=== PATIENT | male | born 1945 | race Caucasian/White ===

== ENCOUNTER 2019-05-01 10:31 | Emergency (ER) | payer OTHER ==
[2019-05-01 11:25] LABS: Protime INR 1.04
--- NOTE | 2019-05-01 11:31 | RAD REPORT ---
EXAM DESCRIPTION: RAD - Chest Single View - 05/01/2019 11:22 am CLINICAL HISTORY: CHEST PAIN Chest pain. COMPARISON: No comparisons FINDINGS: Portable technique limits examination quality. Mild COPD. No focal infiltrate. The heart is normal in size. No displaced fractures. IMPRESSION: Mild COPD.
[2019-05-01 11:33] LABS: ALT/SGPT 29 U/L (12-78); AST/SGOT 25 U/L (15-37); Albumin 3.6 g/dL (3.4-5.0); Alkaline Phosphatase 67 U/L (45-117); BUN Blood Urea Nitrogen 21 mg/dL (7-18); Bicarbonate 25 mmol/L (21-32); Bilirubin Direct 0.3 mg/dL (0-0.2); Bilirubin Total 1.6 mg/dL (0.2-1.0); Glucose Level 104 mg/dL (74-106); Magnesium 2.2 mg/dL (1.8-2.4); NT PRO-BNP 63 pg/mL (<450); Protein, Total 7.5 g/dL (6.4-8.2); Sodium Level 139 mmol/L (136-145); Troponin (Emerg Dept Use Only) < 0.02 ng/mL (0.0-0.045)
--- NOTE | 2019-05-01 11:41 | ER ---
Nurse's Notes [facility] Name: Luis Miguel Luke Age: 73 yrs Sex: Male : 1945 Arrival Date: 05/01/2019 Time: 10:34 Bed 8 Private MD: Diagnosis: Hypotension;Bradycardia, unspecified;Other chest pain Presentation: 05/01 10:49 Presenting complaint: Patient states: has had intermittent midsternal chest pain all iw week, this morning woke up and had a low BP reading of 98/60 and was dizzy, [facility], pt has hx of hiatal hernia that gives him pain from time to time, pt denies pain at this time, c/o mild dizziness. Transition of care: patient was not received from another setting of care. Onset of symptoms was May 01, 2019. Risk Assessment: Do you want to hurt yourself or someone else? Patient reports no desire to harm self or others. Initial Sepsis Screen: Does the patient meet any 2 criteria? No. Patient's initial sepsis screen is negative. Does the patient have a suspected source of infection? No. Patient's initial sepsis screen is negative. Care prior to arrival: None. 10:49 Method Of Arrival: Wheelchair iw 10:49 Acuity: ISAAC 3 iw Historical: - Allergies: 10:55 Aspirin; iw - Home Meds: 10:55 None [Active]; iw - PMHx: 10:55 prostate cancer; iw - PSHx: 10:55 prostatectomy; back; Hernia repair; ear surgery; iw - Immunization history:: Adult Immunizations up to date. - Social history:: Smoking status: Patient/guardian denies using tobacco. - Ebola Screening: : Patient negative for fever greater than or equal to 101.5 degrees Fahrenheit, and additional compatible Ebola Virus Disease symptoms Patient denies exposure to infectious person Patient denies travel to an Ebola-affected area in the 21 days before illness onset No symptoms or risks identified at this time. - Family history:: not pertinent. Screenin:00 Abuse screen: Denies threats or abuse. Denies injuries from another. Nutritional sg screening: No deficits noted. Tuberculosis screening: No symptoms or risk factors identified. Never had TB. Fall Risk None identified. Assessment: 11:00 General: Appears in no apparent distress. well groomed, well developed, well nourished, sg Behavior is calm, cooperative, appropriate for age. Pain: Complains of pain in chest Quality of pain is described as aching, intermittent. Neuro: Level of Consciousness is awake, alert, obeys commands, Oriented to person, place, time, Speech is normal, Facial symmetry appears normal. Cardiovascular: Capillary refill is brisk in bilateral fingers Patient's skin is warm and dry. Chest pain is denied. Respiratory: Airway is patent Respiratory effort is even, unlabored, Respiratory pattern is regular, symmetrical. GI: Abdomen is round non-distended. : No signs and/or symptoms were reported regarding the genitourinary system. EENT: No signs and/or symptoms were reported regarding the EENT system. Derm: Skin is pink, warm \T\ dry. Musculoskeletal: No signs and/or symptoms reported regarding the musculoskeletal system. Vital Signs: 10:55 BP 153 / 81; Pulse 64; Resp 16; Temp 97.5; Pulse Ox 100% on R/A; Weight 84.37 kg; iw Height 5 ft. 11 in. (180.34 cm); Pain 0/10; 12:55 BP 160 / 87; Pulse 57 MON; Resp 17; Pulse Ox 99% on R/A; Pain 0/10; sg 14:11 BP 160 / 83; Pulse 49; Resp 16; Pulse Ox 100% on R/A; Pain 0/10; hb 14:45 BP 157 / 73; Pulse 58; Resp 13; Pulse Ox 98% on R/A; sg 16:00 BP 166 / 70; Pulse 55; Resp 18 S; Temp 97.6; Pulse Ox 100% on R/A; Pain 0/10; sg 10:55 Body Mass Index 25.94 (84.37 kg, 180.34 cm) iw ED Course: 10:34 Patient arrived in ED. rg4 10:37 Jordon Funes MD is Attending Physician. zackery 10:53 Triage completed. iw 10:55 Arm band placed on. iw 10:57 Samuel Mcgowan, YOGI is Primary Nurse. sg 11:00 Patient has correct armband on for positive identification. Placed in gown. Bed in low sg position. Side rails up X2. 11:00 Inserted saline lock: 20 gauge in right forearm, using aseptic technique. Blood sg collected. Patient maintains SpO2 saturation greater than 95% on room air. 11:21 X-ray completed. Portable x-ray completed in exam room. Patient tolerated procedure mh1 well. 11:25 patient monitor on. Pulse ox on. NIBP on. jp3 13:01 Warm blanket given. jp3 14:17 No provider procedures requiring assistance completed. Patient transferred, IV remains sg in place. intact, No redness/swelling at site. Administered Medications: 12:00 Drug: NS 0.9% 1000 ml Route: IV; Rate: 125 ml/hr; Site: right forearm; sg 12:00 Drug: Pepcid 20 mg Route: IVP; Site: right forearm; sg 12:40 Follow up: Response: No adverse reaction sg 12:06 Drug: Thiamine 100 mg Route: IV; Rate: bolus; Site: right forearm; sg 12:30 Follow up: Response: No adverse reaction; IV Status: Completed infusion sg 12:07 Drug: NS 0.9% 500 ml Route: IV; Rate: bolus; Site: right forearm; sg 12:45 Follow up: Response: No adverse reaction; IV Status: Completed infusion; IV Intake: sg 500ml 14:18 Drug: Lovenox 80 mg Route: Sub-Q; Site: right lower abdomen; sg 14:35 Follow up: Response: No adverse reaction sg Intake: 12:45 IV: 500ml; Total: 500ml. sg Outcome: 11:40 ER care complete, transfer ordered by . zackery 14:16 Transferred Note: report called to Samy CALIX for [facility] sg 16:15 Transferred by ground EMS to [facility] Transfer form completed. 16:15 Condition: stable 16:15 Instructed on the need for transfer, safety practices. 16:17 Patient left the ED. Signatures: Samuel Mcgowan RN RN sg Anderson, Corey, MD MD cha Harvey, Martha 1 Ranjana Coombs RN RN Alana Reyes RN RN hb Garcia, Rubi rg4 Abimael Lao jp3
--- NOTE | 2019-05-01 11:41 | EDPHYS ---
Physician Documentation [facility] Name: Luis Miguel Luke Age: 73 yrs Sex: Male : 1945 Arrival Date: 05/01/2019 Time: 10:34 Bed 8 Private MD: ED Physician Jordon Funes HPI: 05/01 11:29 This 73 yrs old Male presents to ER via Wheelchair with complaints of Chest zackery Pain, Low Blood Pressure. 11:29 The patient or guardian reports chest pain that is located primarily in the substernal zackery area. Onset: just prior to arrival, this morning. The pain does not radiate. Associated signs and symptoms: Pertinent positives: lightheadedness, near-syncope. The chest pain is described as a pressure. Modifying factors: The symptoms are alleviated by nothing. the symptoms are aggravated by nothing. Severity of pain: At its worst the pain was mild in the emergency department the pain is unchanged. The patient has experienced similar episodes in the past, a few times. Historical: - Allergies: 10:55 Aspirin; iw - Home Meds: 10:55 None [Active]; iw - PMHx: 10:55 prostate cancer; iw - PSHx: 10:55 prostatectomy; back; Hernia repair; ear surgery; iw - Immunization history:: Adult Immunizations up to date. - Social history:: Smoking status: Patient/guardian denies using tobacco. - Ebola Screening: : Patient negative for fever greater than or equal to 101.5 degrees Fahrenheit, and additional compatible Ebola Virus Disease symptoms Patient denies exposure to infectious person Patient denies travel to an Ebola-affected area in the 21 days before illness onset No symptoms or risks identified at this time. - Family history:: not pertinent. ROS: 11:29 Constitutional: Negative for fever, chills, and weight loss, Eyes: Negative for injury, zackery pain, redness, and discharge, ENT: Negative for injury, pain, and discharge, Neck: Negative for injury, pain, and swelling, Respiratory: Negative for shortness of breath, cough, wheezing, and pleuritic chest pain, Abdomen/GI: Negative for abdominal pain, nausea, vomiting, diarrhea, and constipation, Back: Negative for injury and pain, : Negative for injury, bleeding, discharge, and swelling, MS/Extremity: Negative for injury and deformity, Skin: Negative for injury, rash, and discoloration, Neuro: Negative for headache, weakness, numbness, tingling, and seizure, Psych: Negative for depression, anxiety, suicide ideation, homicidal ideation, and hallucinations, Allergy/Immunology: Negative for hives, rash, and allergies, Endocrine: Negative for neck swelling, polydipsia, polyuria, polyphagia, and marked weight changes. 11:29 Cardiovascular: Positive for chest pain, of the chest. Exam: 11:29 Constitutional: This is a well developed, well nourished patient who is awake, alert, zackery and in no acute distress. Head/Face: Normocephalic, atraumatic. Eyes: Pupils equal round and reactive to light, extra-ocular motions intact. Lids and lashes normal. Conjunctiva and sclera are non-icteric and not injected. Cornea within normal limits. Periorbital areas with no swelling, redness, or edema. ENT: Nares patent. No nasal discharge, no septal abnormalities noted. Tympanic membranes are normal and external auditory canals are clear. Oropharynx with no redness, swelling, or masses, exudates, or evidence of obstruction, uvula midline. Mucous membranes moist. Neck: Trachea midline, no thyromegaly or masses palpated, and no cervical lymphadenopathy. Supple, full range of motion without nuchal rigidity, or vertebral point tenderness. No Meningismus. Chest/axilla: Normal chest wall appearance and motion. Nontender with no deformity. No lesions are appreciated. Cardiovascular: Regular rate and rhythm with a normal S1 and S2. No gallops, murmurs, or rubs. Normal PMI, no JVD. No pulse deficits. Respiratory: Lungs have equal breath sounds bilaterally, clear to auscultation and percussion. No rales, rhonchi or wheezes noted. No increased work of breathing, no retractions or nasal flaring. Abdomen/GI: Soft, non-tender, with normal bowel sounds. No distension or tympany. No guarding or rebound. No evidence of tenderness throughout. Back: No spinal tenderness. No costovertebral tenderness. Full range of motion. Male : Normal genitalia with no discharge or lesions. Skin: Warm, dry with normal turgor. Normal color with no rashes, no lesions, and no evidence of cellulitis. MS/ Extremity: Pulses equal, no cyanosis. Neurovascular intact. Full, normal range of motion. Neuro: Awake and alert, GCS 15, oriented to person, place, time, and situation. Cranial nerves II-XII grossly intact. Motor strength 5/5 in all extremities. Sensory grossly intact. Cerebellar exam normal. Normal gait. Psych: Awake, alert, with orientation to person, place and time. Behavior, mood, and affect are within normal limits. 11:29 Musculoskeletal/extremity: DVT Exam: No signs of deep vein thrombosis. no pain, no swelling, no tenderness, negative Homans' sign noted on exam, no appreciated bluish discoloration, no erythema, no increased warmth. Vital Signs: 10:55 BP 153 / 81; Pulse 64; Resp 16; Temp 97.5; Pulse Ox 100% on R/A; Weight 84.37 kg; iw Height 5 ft. 11 in. (180.34 cm); Pain 0/10; 12:55 BP 160 / 87; Pulse 57 MON; Resp 17; Pulse Ox 99% on R/A; Pain 0/10; sg 14:11 BP 160 / 83; Pulse 49; Resp 16; Pulse Ox 100% on R/A; Pain 0/10; hb 14:45 BP 157 / 73; Pulse 58; Resp 13; Pulse Ox 98% on R/A; sg 16:00 BP 166 / 70; Pulse 55; Resp 18 S; Temp 97.6; Pulse Ox 100% on R/A; Pain 0/10; sg 10:55 Body Mass Index 25.94 (84.37 kg, 180.34 cm) iw MDM: 10:37 Patient medically screened. [facility] 11:31 Data reviewed: vital signs, nurses notes, lab test result(s), EKG, radiologic studies, zackery plain films. 05/01 10:56 Order name: Basic Metabolic Panel; Complete Time: 11:39 05/01 10:56 Order name: CBC with Diff; Complete Time: 13:49 05/01 10:56 Order name: LFT's; Complete Time: 11:39 05/01 10:56 Order name: Magnesium; Complete Time: 11:39 05/01 10:56 Order name: NT PRO-BNP; Complete Time: 11:39 05/01 10:56 Order name: PT-INR; Complete Time: 11:39 05/01 10:56 Order name: Troponin (emerg Dept Use Only); Complete Time: 11:39 05/01 10:56 Order name: XRAY Chest (1 view) 05/01 11:09 Order name: Lipase [facility] 05/01 11:28 Order name: Echo w/ Doppler [facility] 05/01 11:29 Order name: Urine Culture [facility] 05/01 11:29 Order name: TSH [facility] 05/01 12:51 Order name: Lipase; Complete Time: 13:49 EDMS 05/01 12:51 Order name: Thyroid Stimulating Hormone; Complete Time: 13:49 EDMS 05/01 10:56 Order name: EKG; Complete Time: 10:58 05/01 10:56 Order name: Cardiac monitoring; Complete Time: 10:57 05/01 10:56 Order name: EKG - Nurse/Tech; Complete Time: 10:57 05/01 10:56 Order name: IV Saline Lock; Complete Time: 10:58 05/01 10:56 Order name: Labs collected and sent; Complete Time: 10:58 05/01 10:56 Order name: O2 Per Protocol; Complete Time: 10:58 05/01 10:56 Order name: O2 Sat Monitoring; Complete Time: 10:59 05/01 11:29 Order name: Urine Dipstick-Ancillary (obtain specimen); Complete Time: 14:36 [facility] 05/01 11:33 Order name: RAD; Complete Time: 11:39 EDMS Administered Medications: 12:00 Drug: NS 0.9% 1000 ml Route: IV; Rate: 125 ml/hr; Site: right forearm; sg 12:00 Drug: Pepcid 20 mg Route: IVP; Site: right forearm; sg 12:40 Follow up: Response: No adverse reaction sg 12:06 Drug: Thiamine 100 mg Route: IV; Rate: bolus; Site: right forearm; sg 12:30 Follow up: Response: No adverse reaction; IV Status: Completed infusion sg 12:07 Drug: NS 0.9% 500 ml Route: IV; Rate: bolus; Site: right forearm; sg 12:45 Follow up: Response: No adverse reaction; IV Status: Completed infusion; IV Intake: sg 500ml 14:18 Drug: Lovenox 80 mg Route: Sub-Q; Site: right lower abdomen; sg 14:35 Follow up: Response: No adverse reaction sg Disposition: 05/01/19 11:40 Transfer ordered to [facility]. Diagnosis are Hypotension, Bradycardia, unspecified, Other chest pain. - Reason for transfer: Higher level of care. - Accepting physician is To NH. - Condition is Fair. - Problem is new. - Symptoms have improved. Signatures: Dispatcher [employer] EDSamuel López RN RN sg Anderson, Corey, MD MD cha Williams, Irene, RN RN Corrections: (The following items were deleted from the chart) 16:17 11:40 05/01/2019 11:40 Transfer ordered to [facility]. Diagnosis is Hypotension; Bradycardia, unspecified; Other chest pain. Reason for transfer: Higher level of care. Accepting physician is To NH. Condition is Fair. Problem is new. Symptoms have improved. zackery
[2019-05-01] MEDS ORDERED: THIAMINE 200 MG/2 ML INJ ONE (11:57)
[2019-05-01] MEDS ORDERED: NA CHLORIDE 0.9% 1,000 ML ONE (11:58)
[2019-05-01] MEDS ORDERED: FAMOTIDINE 20 MG/2 ML VIAL IV ONE (11:58)
[2019-05-01 12:49] LABS: Thyroid Stimulating Hormone 2.53 uIU/mL (0.360-3.740)
[2019-05-01 13:17] LABS: Absolute Monocytes 1.4 K/uL (0.1-1.3); Absolute Neutrophil 5.6 K/uL (1.8-8.0); Basophils % 1.4 % (0-1.3); Eosinophils % 3.4 % (0-4.4); Hematocrit 41.1 % (39.6-49.0); Lymphocytes % 21.5 % (15.3-44.8); MPV 8.8 fL (7.6-11.3); Monocytes % 14.6 % (3.3-12.3); RBC Red Blood Cell Count 4.67 M/uL (4.33-5.43)
[2019-05-01] MEDS ORDERED: ENOXAPARIN 80 MG/0.8 ML SQ ONE (14:23)
--- NOTE | 2019-05-01 14:35 | ECHO ---
HEIGHT: 5 ft11 in WEIGHT: 185 lb oz DATE OF STUDY: 05/01/[address]: Jordon Funes MD 2-DIMENSIONAL: YES M.MODE: YES DOPPLER: YES COLOR FLOW: YES TDS: NO PORTABLE: YES DEFINITY: NO BUBBLE STUDY: NO DIAGNOSIS: HYPOTENSION CARDIAC HISTORY: CATHERIZATION: NO SURGERY: NO PROSTHETIC VALVE: NO PACEMAKER: NO MEASUREMENTS (cm) DIASTOLIC (NORMALS) SYSTOLIC (NORMALS) IVSd 0.9 (0.6-1.2) LA Diam 3.8 (1.9-4.0) LVEF 75% LVIDd 4.8 (3.5-5.7) LVIDs 2.7 (2.0-3.5) %FS 44% LVPWd 1.1 (0.6-1.2) Ao Diam 2.6 (2.0-3.7) 2 DIMENSIONAL ASSESSMENT: RIGHT ATRIUM: NORMAL LEFT ATRIUM: NORMAL RIGHT VENTRICLE: NORMAL LEFT VENTRICLE: NORMAL TRICUSPID VALVE: NORMAL MITRAL VALVE: NORMAL PULMONIC VALVE: NORMAL AORTIC VALVE: STENOSIS PERICARDIAL EFFUSION: NONE AORTIC ROOT: NORMAL LEFT VENTRICULAR WALL MOTION: NORMAL. DOPPLER/COLOR FLOW: MODERATE AORTIC STENOSIS, PEAK/MEAN GRADIENT 28/15mmHg. ESTIMATED AORTIC VALVE AREA 1. 5 CENTIMETERS SQUARED. MILD AORTIC, MITRAL AND TRICUSPID REGURGITATION. NORMAL RIGHT VENTRICULAR SYSTOLIC PRESSURE. COMMENTS: NORMAL LEFT VENTRICULAR EJECTION FRACTION. MODERATE AORTIC STENOSIS. MILD AORTIC, MITRAL AND TRICUSPID REGURGITATION. TECHNOLOGIST: TONIO MORA
--- NOTE | 2019-05-01 15:02 | EKG ---
Test Date: 2019-05-01 Test Time: 10:47:03 Transit Driver: SWG MEASUREMENT RESULTS: Intervals: Rate: 58 OR: 204 QRSD: 100 QT: 402 QTc: 394 [place]: P: 61 OR: 204 QRS: 29 T: 11 INTERPRETIVE STATEMENTS: Sinus bradycardia with sinus arrhythmia Otherwise normal ECG No previous ECG available for comparison Electronically Signed On 05-01-19 15:01:51 CDT by José Pringle
== END 2019-05-01 16:17 ==
LOC: ER 10:31
DX: R00.1 Bradycardia, unspecified (principal); I95.9 Hypotension, unspecified; Z85.46 Personal history of malignant neoplasm of prostate; Z88.6 Allergy status to analgesic agent
CPT/HCPCS: 96365; 93005; 93306; 87088; 85025; 87086; 80048; 36415; 83735; 85610; 80076; 84443; 84484; 83690; 83880; 71045; 96375; 96372; 99285; J3411; J1650; J7030

== ENCOUNTER 2023-02-13 21:15 | Emergency (ER) | payer OTHER ==
[2023-02-13] MEDS ORDERED: ASPIRIN 81 MG CHEWABLE TABLET ONE (21:45)
[2023-02-13] MEDS ORDERED: FAMOTIDINE 20 MG TAB ONE (21:46)
[2023-02-13 22:28] LABS: Absolute Lymphocytes (CBC) 2.5 K/uL (0.7-4.9); Hematocrit 39.3 % (39.6-49.0); Lymphocytes % 23.4 % (15.3-44.8); MCV 85.3 fL (80-100)
--- NOTE | 2023-02-13 22:38 | RAD REPORT ---
EXAM DESCRIPTION: Cheryl Single View3 10:25 pm CLINICAL HISTORY: Chest pain COMPARISON: 2018 FINDINGS: The lungs appear clear of acute infiltrate. The heart is normal size IMPRESSION: No acute abnormalities displayed
[2023-02-13 22:50] LABS: Potassium 4.1 mEq/L (3.5-5.1); Troponin High Sensitivity 9.2 pg/mL (<58.9)
[2023-02-13 23:14] LABS: Albumin 3.7 g/dL (3.4-5.0); Bilirubin Direct 0.2 mg/dL (0-0.2); Bilirubin Total 0.9 mg/dL (0.2-1.0); Protein, Total 7.7 g/dL (6.4-8.2)
[2023-02-13] MEDS ORDERED: MORPHINE 4 MG/ML SYR ONE (23:20)
[2023-02-13] MEDS ORDERED: ONDANSETRON 4 MG/2 ML VIAL ONE (23:20)
[2023-02-14] MEDS ORDERED: FENTANYL CITR 100 MCG/2 ML ONE ×3 (00:36→05:19)
[2023-02-14] MEDS ORDERED: PROMETHAZINE INJ 25 MG/ML AMP ONE (01:20)
--- NOTE | 2023-02-14 01:20 | EDPHYS ---
Physician Documentation [facility] Name: Luis Miguel Luke Age: 77 yrs Sex: Male : 1945 Arrival Date: 02/13/2023 Time: 21:19 Bed 17 Private MD: ED Physician Gigi Suh HPI: 02/14 00:24 This 77 yrs old Male presents to ER via Wheelchair with complaints of Chest Pain. ms3 00:24 77-year-old male with past medical history of prostate cancer and hiatal hernia ms3 presents for upper abdominal/substernal chest pain that began 3 hours prior to arrival. Patient states the pain is sharp and rated 10/10. Patient denies nausea, vomiting, shortness of breath, diaphoresis. Patient denies alleviating or inciting factors. 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 - Social history:: Smoking status: Patient denies any tobacco usage or history of. ROS: 02/14 00:24 Constitutional: Negative for fever, and chills. Neck: Negative for injury, pain, and ms3 swelling. Respiratory: Negative for shortness of breath, cough, wheezing, and pleuritic chest pain, Abdomen/GI: Negative for abdominal pain, nausea, vomiting, diarrhea, and constipation, MS/Extremity: Negative for injury and deformity, Skin: Negative for injury, rash, and discoloration. Cardiovascular: Positive for chest pain. Exam: 02/13 21:42 ECG was reviewed by the Attending Physician. ms3 03 00:24 Constitutional: This is a well developed, well nourished patient who is awake, alert, ms3 and in no acute distress. Head/Face: Normocephalic, atraumatic. Neck: Trachea midline, no cervical lymphadenopathy. Supple, full range of motion without nuchal rigidity, or vertebral point tenderness. No Meningismus. Chest/axilla: Normal chest wall appearance and motion. Nontender with no deformity. Cardiovascular: Regular rate and rhythm with a normal S1 and S2. No gallops, murmurs, or rubs. Normal PMI, no JVD. No pulse deficits. Respiratory: Lungs have equal breath sounds bilaterally, clear to auscultation and percussion. No rales, rhonchi or wheezes noted. No increased work of breathing, no retractions or nasal flaring. Abdomen/GI: Soft, non-tender, with normal bowel sounds. No distension or tympany. No guarding or rebound. No evidence of tenderness throughout. Skin: Warm, dry with normal turgor. Normal color with no rashes, no lesions, and no evidence of cellulitis. MS/ Extremity: Pulses equal, no cyanosis. Neurovascular intact. Full, normal range of motion. Vital Signs: 02/13 21:28 BP 163 / 68; Pulse 68; Resp 20; Temp 98.4; Pulse Ox 100% on R/A; Weight 81.65 kg; ha1 Height 5 ft. 9 in. ; Pain 10/10; 21:45 BP 178 / 72; Pulse 66; Resp 14; Pulse Ox 96% on R/A; eh3 22:45 BP 176 / 71; Pulse 68; Resp 17; Pulse Ox 100% on R/A; eh3 23:45 BP 170 / 82; Pulse 64; Resp 17; Pulse Ox 99% on R/A; eh3 21:28 Body Mass Index 26.58 (81.65 kg, 175.26 cm) ha1 21:28 Pain Scale: Adult ha1 MDM: 21:33 Patient medically screened. ms3 02/14 00:24 Differential diagnosis: abnormal EKG, acute myocardial infarction, coronary artery ms3 disease cholecystitis, Cholelithiasis Bowel obstruction versus pancreatitis. 02/13 21:22 Order name: Basic Metabolic Panel; Complete Time: 22:51 ms3 02/13 21:22 Order name: CBC with Diff; Complete Time: 22:51 ms3 02/13 21:22 Order name: Troponin HS; Complete Time: 22:51 ms3 02/13 21:22 Order name: XRAY Chest (1 view); Complete Time: 22:51 ms3 02/13 21:22 Order name: EKG; Complete Time: 21:23 ms3 02/13 21:22 Order name: Cardiac monitoring; Complete Time: 22:01 ms3 02/13 21:22 Order name: EKG - Nurse/Tech; Complete Time: 22:01 ms3 02/13 21:22 Order name: IV Saline Lock; Complete Time: 22:20 ms3 02/13 21:22 Order name: Labs collected and sent; Complete Time: 22:20 ms3 02/13 21:22 Order name: O2 Per Protocol; Complete Time: 22:01 ms3 02/13 21:22 Order name: O2 Sat Monitoring; Complete Time: 22:01 ms3 02/13 22:51 Order name: LFT's; Complete Time: 23:15 ms3 02/13 23:31 Order name: Lipase; Complete Time: 23:44 ms3 02/14 00:35 Order name: Lactate w/ 2H reflex if indic. ms3 02/13 23:31 Order name: CT Abd/Pelvis - IV Contrast Only ms3 EC/18 21:42 Rate is 72 beats/min. Rhythm is regular. QRS [place] is Normal. [place] interval is normal. QRS ms3 interval is normal. Clinical impression: Normal ECG. Interpreted by me. Reviewed by me. Administered Medications: 21:50 Drug: Aspirin PO Chewable Tablet 324 mg Route: PO; [facility] 23:13 Follow up: Response: No adverse reaction [facility] 21:50 Drug: Famotidine PO 20 mg Route: PO; 3 23:13 Follow up: Response: No adverse reaction [facility] 23:26 Drug: morphine IVP or IV 4 mg Route: IVP; Infused Over: 4 mins; Site: right antecubital;[facility] 23:27 Drug: Ondansetron IVP 4 mg Route: IVP; Site: right antecubital; [facility] 02/14 00:36 Drug: fentaNYL (PF) IVP 50 mcg Route: IVP; Site: right antecubital; [facility] Disposition Summary: 02/14/23 01:20 Transfer Ordered Accepting Physician: Dr orosco Transfer Location: Other Acute Care Facility ms3 Reason: Higher level of care ms3 Condition: Stable ms3 Problem: new ms3 Symptoms: are unchanged ms3 Diagnosis - Obstruction of bile duct ms3 - Chest pain, unspecified ms3 - Upper abdominal pain, unspecified ms3 - Nausea with vomiting, unspecified ms3 Forms: - Medication Reconciliation Form ms3 - SBAR form ms3 Signatures: Dispatcher [employer] EDMS Gigi Suh DO DO ms3 Catrachita Membreno RN RN [facility] Reece, Lala, RN RN ha1
--- NOTE | 2023-02-14 01:20 | ER ---
Nurse's Notes [facility] Name: Luis Miguel Luke Age: 77 yrs Sex: Male : 1945 Arrival Date: 02/13/2023 Time: 21:19 Bed 17 Private MD: Diagnosis: Obstruction of bile duct;Chest pain, unspecified;Upper abdominal pain, unspecified;Nausea with vomiting, unspecified Presentation: 02/13 21:28 Chief complaint: Patient states: I have been having this chest pain that feels very ha1 bad. I am afraid it might be a heart attack. Coronavirus screen: Vaccine status: Patient reports receiving the 2nd dose of the covid vaccine. Pfizer. Ebola Screen: No symptoms or risks identified at this time. Initial Sepsis Screen: Does the patient meet any 2 criteria? No. Patient's initial sepsis screen is negative. Does the patient have a suspected source of infection? No. Patient's initial sepsis screen is negative. Risk Assessment: Do you want to hurt yourself or someone else? Patient reports no desire to harm self or others. Onset of symptoms was February 13, 2023. 21:28 Method Of Arrival: Wheelchair ha1 21:28 Acuity: ISAAC 3 ha1 Triage Assessment: 21:30 General: Appears uncomfortable, Behavior is cooperative. Pain: Complains of pain in ha1 chest Pain does not radiate. Pain currently is 10 out of 10 on a pain scale. Cardiovascular: Reports chest pain, Heart tones S1 S2 present Patient's skin is warm and dry. Rhythm is sinus rhythm. Respiratory: Airway is patent Respiratory effort is even, unlabored, Respiratory pattern is regular, symmetrical. 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 - Social history:: Smoking status: Patient denies any tobacco usage or history of. Screenin:45 [facility] ED Fall Risk Assessment (Adult) Score/Fall Risk Level 0 - 2 = Low Risk. Abuse eh3 screen: Denies threats or abuse. Denies injuries from another. Nutritional screening: No deficits noted. Tuberculosis screening: No symptoms or risk factors identified. Assessment: 21:45 General: Appears in no apparent distress. uncomfortable, Behavior is cooperative, eh3 appropriate for age. Pain: Complains of pain in mid-sternal area Pain does not radiate. Pain began 2-3 days ago. Neuro: Level of Consciousness is awake, alert, obeys commands, Oriented to person, place, time, situation. Cardiovascular: Capillary refill < 3 seconds Patient's skin is warm and dry. Rhythm is sinus rhythm. Respiratory: Airway is patent Respiratory effort is even, unlabored, Respiratory pattern is regular, symmetrical. GI: Abdomen is round non-distended. : No signs and/or symptoms were reported regarding the genitourinary system. EENT: No signs and/or symptoms were reported regarding the EENT system. Derm: Skin is pink, warm \T\ dry. Musculoskeletal: Circulation, motion, and sensation intact. 22:45 Reassessment: Patient appears in no apparent distress at this time. Patient and/or eh3 family updated on plan of care and expected duration. Pain level reassessed. Patient is alert, oriented x 3, equal unlabored respirations, skin warm/dry/pink. 23:20 GI: Pt is actively vomiting bile. eh3 23:45 Reassessment: Patient and/or family updated on plan of care and expected duration. Pain eh3 level reassessed. Patient is alert, oriented x 3, equal unlabored respirations, skin warm/dry/pink. Patient states symptoms have not improved. Vital Signs: 21:28 BP 163 / 68; Pulse 68; Resp 20; Temp 98.4; Pulse Ox 100% on R/A; Weight 81.65 kg; ha1 Height 5 ft. 9 in. ; Pain 10/10; 21:45 BP 178 / 72; Pulse 66; Resp 14; Pulse Ox 96% on R/A; eh3 22:45 BP 176 / 71; Pulse 68; Resp 17; Pulse Ox 100% on R/A; eh3 23:45 BP 170 / 82; Pulse 64; Resp 17; Pulse Ox 99% on R/A; eh3 21:28 Body Mass Index 26.58 (81.65 kg, 175.26 cm) ha1 21:28 Pain Scale: Adult [facility] ED Course: 21:19 Patient arrived in ED. [id number] 21:22 Gigi Suh DO is Attending Physician. ms3 21:30 Triage completed. ha1 21:39 Catrachita Membreno, RN is Primary Nurse. eh3 21:45 Patient has correct armband on for positive identification. Bed in low position. Call 3 light in reach. Side rails up X2. Adult w/ patient. Client placed on continuous cardiac and pulse oximetry monitoring. NIBP monitoring applied. Door closed. Noise minimized. Lights dimmed. Warm blanket given. 22:20 Inserted saline lock: 22 gauge in right antecubital area, using aseptic technique. 3 Blood collected. 22:26 XRAY Chest (1 view) In Process Unspecified. EDMS 02/14 00:22 Primary Nurse role handed off by Catrachita Membreno, YOGI ha1 00:22 Lala Reece, RN is Primary Nurse. ha1 00:54 CT Abd/Pelvis - IV Contrast Only In Process Unspecified. EDMS Administered Medications: 02/13 21:50 Drug: Aspirin PO Chewable Tablet 324 mg Route: PO; 3 23:13 Follow up: Response: No adverse reaction 3 21:50 Drug: Famotidine PO 20 mg Route: PO; eh3 23:13 Follow up: Response: No adverse reaction 3 23:26 Drug: morphine IVP or IV 4 mg Route: IVP; Infused Over: 4 mins; Site: right antecubital;3 23:27 Drug: Ondansetron IVP 4 mg Route: IVP; Site: right antecubital; 3 02/14 00:36 Drug: fentaNYL (PF) IVP 50 mcg Route: IVP; Site: right antecubital; ha1 Outcome: 01:20 ER care complete, transfer ordered by . ms3 Signatures: Dispatcher [employer] EDOK Gigi Suh DO DO ms3 Jaclyn Curtis [email or web address] Catrachita Membreno, RN RN 3 Lala Reece, YOGI RN ha1
[2023-02-14 02:32] LABS: SARS-CoV-2 Antigen Rapid Res Negative (Negative)
[2023-02-14] MEDS ORDERED: NA CHLORIDE 0.9% 100 ML ONE (03:31)
[2023-02-14] MEDS ORDERED: PIPERACIL/TAZO 3.375 GM VIAL IV ONE (03:32)
[2023-02-14 09:23] VITALS: O2SAT 96
[2023-02-14 10:28] VITALS: BP 138/78
--- NOTE | 2023-02-15 11:25 | RAD REPORT ---
EXAM DESCRIPTION: CT - Abdomen Pelvis W Contrast - 02/14/2023 6:24 am CLINICAL HISTORY: Abdominal pain. PROCEDURE: CT scan of the abdomen and pelvis was performed with intravenous contrast. 5 mm axial beth ges were obtained along with coronal and sagittal reformatted images. COMPARISON: none. DOSE OPTIMIZATION: This facility uses dose optimization techniques as appropriate to perform exams, including at least one of the following techniques: 1. Automated exposure control. 2. Adjustment of the mA and/or kV according to patient size (this includes techniques or standardized protocols for targeted exams where dose is matched to the indication/reason for exam, i.e. extremiti es or head). 3. Use of iterative reconstructive technique. FINDINGS: Lung Bases: No active disease. Liver: There is mild intrahepatic and extrahepatic bile duct dilatation along with moderate severe ga llbladder distention. The common bile duct measures 0.9 cm. Findings suspicious for a distal common b ile duct obstruction. No obvious ductal stones are demonstrated. There is a moderate-sized diverticul um arising from the second portion of the duodenum measuring 2.3 x 2.7 x 2.3 cm. Spleen: Absent. Pancreas: Normal. Gallbladder: Moderately distended. Adrenal Glands: Normal. Kidneys: There are moderate-sized renal sinus cysts noted bilaterally. Retroperitoneal Structures: There is moderately severe atherosclerotic disease about the abdominal ao rta and its branch vessels. Bowel Survey: There is a small hiatal hernia. The stomach is otherwise unremarkable. There is a moderate-sized diverticulum in the second portion of the duodenum as described above. There is stool like material within multiple distal small bowel loops suggestive of bowel stasis. The appendix is unremarkable. There is a moderate amount residual stool identified throughout the colon. There is mild diverticulosis of the descending and sigmoid colon. Prostate Gland: Post TURP changes are demonstrated. Urinary Bladder: Normal. Peritoneal Cavity: Normal. Mesenteric Structures: Normal. Abdominal Wall: There is a tiny umbilical hernia containing fat. Bony Structures: There is severe multilevel degenerative disc disease and facet arthropathy throughou t the lower thoracic and lumbar spine. There is mild levoscoliosis of the lumbar spine IMPRESSION: 1. Findings suggestive of a common bile duct obstruction, etiology uncertain. There is s econdary distention of the intrahepatic and extra hepatic bile ducts as well as the gallbladder. 2. Moderate-sized diverticula arising from the second portion of the duodenum. 3. Moderate amount residual stool throughout the colon. 4. Severe degenerative changes throughout the lower thoracic and lumbar spine. Electronically signed by: Wilmer Shahid MD 02/14/2023 1:06 AM CDT Due to temporary technical issues with the PACS/Fluency reporting system, reports are being signed by the in house radiologists without review as a courtesy to insure prompt reporting. The interpreting radiologist is fully responsible for the content of the report.
--- NOTE | 2023-02-15 11:48 | RAD REPORT ---
EXAM DESCRIPTION: US - Abdomen Exam Complete - 02/14/2023 2:08 am CLINICAL HISTORY: 77 years, Male, ABD PAIN COMPARISON: Previous CT scan of the abdomen and pelvis. TECHNIQUE: Utilizing a curved array transducer, real-time ultrasound evaluation of the abdominal vis cera was performed. Color Doppler imaging was used to assess vascular flow. FINDINGS: The liver is normal in size measuring 14.2 cm. Increased echo pattern was identified. No focal areas of increased or decreased echogenicity was seen. The portal flow is hetopedal with no signs of vein thrombosis. The gallbladder demonstrate the presence of mobile echogenic debris/sludge. No nonmobile echogenic fo cus along the dependent portion of the gallbladder perhaps corresponding to single gallbladder calcul us/or cholesterol crystal and/or tiny polyp. There is gallbladder wall thickening there is abnormal t hickening measuring 3.6 mm. There is positive ultrasonographic Ferrell sign. The common bile duct me asures 5.5 mm. No intra or extrahepatic biliary duct dilatation was identified. The pancreas head in the mid body demonstrate to be unremarkable with no focal lesions. The spleen was not visualized corresponding to patient history of previous splenectomy. The right kidney measures 11.7 x 5.5 x 4.9 cm, the left kidney measures 12 x 6.6 x 6 cm. Both kidneys demonstrate bilateral hydronephrosis. There is no free fluid within the upper abdomen. Visualized portions of the abdominal aorta demonstra te to be within normal limits. IMPRESSION: Mobile echogenic debris/sludge within the gallbladder with gallbladder wall thickening a nd positive ultrasonographic Ferrell sign. Findings are compatible with acute cholecystitis. Bilateral hydronephrosis. Spleen not visualized corresponding to patient history of previous splenectomy. Electronically signed by: Galindo Lau MD 02/14/2023 2:28 AM CDT Due to temporary technical issues with the PACS/Fluency reporting system, reports are being signed by the in house radiologists without review as a courtesy to insure prompt reporting. The interpreting radiologist is fully responsible for the content of the report.
--- NOTE | 2023-02-15 17:38 | EKG ---
Test Date: 2023-02-13 Test Time: 21:24:34 Storehouse Clerk: JAVON MEASUREMENT RESULTS: Intervals: Rate: 72 WV: 198 QRSD: 96 QT: 382 QTc: 418 [place]: P: 62 WV: 198 QRS: 29 T: 44 INTERPRETIVE STATEMENTS: Normal sinus rhythm Normal ECG Compared to ECG 05/01/2019 10:47:03 Sinus bradycardia no longer present Sinus arrhythmia no longer present Electronically Signed On 02-15-23 17:35:53 CDT by Jf Branch
== END 2023-02-14 05:20 ==
LOC: ER 21:15
DX: K83.1 Obstruction of bile duct (principal); R07.9 Chest pain, unspecified; R10.10 Upper abdominal pain, unspecified; R11.2 Nausea with vomiting, unspecified; K44.9 Diaphragmatic hernia without obstruction or gangrene; Z85.46 Personal history of malignant neoplasm of prostate; Z88.8 Allergy status to other drugs, medicaments and biological substances
CPT/HCPCS: 93005; 85025; 80048; 36415; 80076; 83605; 84484; 83690; 74177; 71045; 76700; 96375; 96372; 96374; 99285; 87811; Q9967; J2550; J2543; J3010 ×3; J2405